=== PATIENT | female | born 1975 | race Caucasian/White ===

== ENCOUNTER 2017-05-14 22:08 | Inpatient (IN) | payer SELFPAY ==
[~2017-05-14] VITALS: Ht 152.4 cm; Wt 53.2 kg
--- NOTE | 2017-05-14 23:03 | NUR ---
PT PRESENTED TO THE ER WITH A C/O LEFT HIP WOUND/ABCESS. PT IS C/O PAIN, REDNESS, ABCESS DRAINED ON IT'S OWN, BUT HAS NOT HEALED. PT AMBULATED TO BED #3. PT HAD A HYSTERECTOMY IN 2007. NO URINE SAMPLE OBTAINED.
[2017-05-14] MEDS ORDERED: IV NS 0.9% 1,000 ML BAG IV STA (23:14)
[2017-05-14] MEDS ORDERED: VANCOMYCIN 1 GM VIAL ONE (23:21)
[2017-05-14] MEDS ORDERED: VANCOMYCIN 1 GM in IV D5W 250 ML IV ONE (23:30)
--- NOTE | 2017-05-14 23:34 | NUR ---
20G IV STARTED IN [facility]. BLOOD AND BLOOD CULTURES DRAWN. COLLECTION COORDINATOR/GRAIN GRADER IS AT THE BEDSIDE. PT C/O PAIN WHERE IV WAS INSERTED. IV REMOVED.
[2017-05-14 23:52] LABS: BASOPHILS % (AUTO) 0.1 % (0.0-2.0); CREATININE 0.6 mg/dL (0.6-1.3); EOSINOPHILS % (AUTO) 0.5 % (0.0-6.0); HEMATOCRIT 34 % (33-45); HEMOGLOBIN 11.1 g/dL (11.5-14.8); LYMPHOCYTES # (AUTO) 1.8 /CMM (0.8-4.8); LYMPHOCYTES % (AUTO) 25.9 % (20.0-44.0); MEAN CORPUSCULAR HEMOGLOBIN 26 PG (26.0-33.0); MEAN CORPUSCULAR HGB CONC 33 g/dl (31.0-36.0); MEAN CORPUSCULAR VOLUME 79 fL (82-100); MONOCYTES # (AUTO) 0.4 /CMM (0.1-1.30); MONOCYTES % (AUTO) 6.4 % (2.0-12.0); NEUTROPHILS # (AUTO) 4.6 /CMM (1.8-8.9); NEUTROPHILS % (AUTO) 67.1 % (43.0-81.0); PLATELET COUNT (AUTO) 385 /CMM (150-450); POTASSIUM 5.4 mmol/L (3.5-5.1); RDW COEFFICIENT OF VARIATION 15.8 (11.5-15.0); RED BLOOD CELL COUNT(AUTO) 4.26 MIL/uL (4.0-5.2); WHITE BLOOD COUNT (AUTO) 6.9 K/uL (4.3-11.0)
--- NOTE | 2017-05-14 23:52 | NUR ---
IV STARTED IN [facility] BY YARI FIGUEREDO.
[2017-05-15 00:15] VITALS: BP 114/55
--- NOTE | 2017-05-15 00:15 | NUR ---
MS WORK FORCE ADVISOR INITIAL NOTES ADMIT PT FROM ER VIA GURNEY ACCOMPANIED BY SUPERINTENDENT CONTAINER TERMINAL AND NURSE. DX OF CELLULITIS. PT IS ALERT ORIENTED AND ABLE TO AMBULATE. . WITH VANCOMYCIN IVP BAG INFUSING AT THIS TIME. NO SIGNS OF ANY ADVERSE REACTION NOTED. PT DENIES ANY PAIN AT THIS TIME. I ASK HER WHY SHE CHOOSE [facility] AND PT STATED SHE HEARD THAT [facility] ARE GOOD THAT'S WHY SHE DECIDED TO COME HERE. ORIENTED HER TO USE THE CALL LIGHT SYSTEM WELL USE IT IF SHE NEEDS SOME HELP OR ASSISTANCE. OFFERED SOME FOODS BUT ONLY REQUESTED TO HAVE CRACKERS AND JUICE. KEPT HER WARM AND COMFORTABLE AT ALL TIMES. WOUND CLEANED AND APPLIED DRESSINGS TOO. PLACE CALL LIGHT AT REACH. WILL CONTINUE MONITORING.
[2017-05-15] MEDS ORDERED: HYDROCODONE/APAP 5/325MG 1 EACH TABLET PO PRN (00:30)
[2017-05-15] MEDS ORDERED: ACETAMINOPHEN 325 MG TABLET PO PRN (00:30)
[2017-05-15] MEDS ORDERED: Z GUARD REMEDY 2 OZ OINT TP PRN (00:30)
[2017-05-15] MEDS ORDERED: MAG HYDROX/AL HYDROX/SIMETH 30 ML UDC PO PRN (00:30)
[2017-05-15] MEDS ORDERED: MAGNESIUM HYDROXIDE 30 ML UDC PO PRN (00:30)
[2017-05-15] MEDS ORDERED: ONDANSETRON HCL/PF 4 MG/2 ML VIAL IVP PRN (00:30)
[2017-05-15] MEDS ORDERED: PIPERACILLIN /TAZOBACTAM 3.375 G in IV D5W 50 ML IV SCH (00:30)
[2017-05-15] MEDS ORDERED: PIPERACILLIN /TAZOBACTAM 3.375 G VIAL IV ONE ×2 (01:18→01:41)
--- NOTE | 2017-05-15 02:30 | NUR ---
JANITOR/NOTES PT RESTING AT THIS TIME WITHOUT ANY DISCOMFORT NOTED. IVF NS AT 50ML/HR INFUSING AT THIS TIME. WILL CONTINUE MONITORING.
[2017-05-15] MEDS: IV NS 0.9% 1,000 ML IV PRN (05:51)
--- NOTE | 2017-05-15 07:11 | NUR ---
MS LOTUS NOTES ADMINISTRATOR CLOSING NOTES PT SLEEPING COMFORTABLY IN BED WITHOUT ANY DISCOMFORT NOTED. IVF NS AT 50ML/HR STILL INFUSING ON HER RIGHT FOREARM. STABLE SINCE ADMISSION. ALL DUE MEDS GIVEN AND ALL NEEDS MET. PLACE CALL LIGHT AT REACH. WILL ENDORSE TO AM NURSE FOR CONTINUITY OF CARE.
[2017-05-15 08:00] VITALS: BP_SYST 101; BP_SYST 123; BP_DIAS 51; BP_DIAS 69
--- NOTE | 2017-05-15 08:05 | NUR ---
MS RN OPENING NOTE RECEIVED BEDSIDE SBAR REPORT ON THE PATEIN. PATIENT IS A/O X4, COOPERATIVE. AWAKE AND RESPONSIVE IN BED. BED IS LOCKED IN LOWEST POSITION, SIDE RAILS UP X2. PATIENT IS AMBULATORY AND BRP. SPO2 97% ON RA. CHEST IS RISING EQUALLY BILATERALLY. DENIES PAIN AT THIS TIME. ALL BELONGINGS WITHIN REACH. ALL NEEDS ARE MET. CALL LIGHT WITHIN REACH. EDUCATED THE PATIENT TO CALL FOR ASSISTANCE USING THE CALL LIGHT. VERBALIZED UNDERSTANDING. WILL CONTINUE TO ASSESS, MONITOR THROUGHOUT THE SHIFT.
--- NOTE | 2017-05-15 08:16 | NUR ---
DOCUMENTED PREVIOUS SHIFT'S MEDICATIONS NON-ADMINISTERED TO RID OF THE RED PASSED DUE REMINDER
[2017-05-15] MEDS: HYDROCODONE/APAP 10/325MG 1 EA TABLET PO PRN ×2 (08:45→20:34)
--- NOTE | 2017-05-15 08:50 | NUR ---
PATIENT COMPLAINED OF PAIN IN L/HIP WOUND. PAIN MEDICATIONS ADMINISTERED ORDERED.
--- NOTE | 2017-05-15 11:33 | NUR ---
WOUND CARE CONSULT: PT PRESENTS WITH LEFT HIP WOUND WITH NECROTIC TISSUE AND RT HIP SCARRING WITH SMALL OPEN AREA. PT REPORTS THAT THERE IS PURULENT DRAINAGE FROM RT HIP WELL. RECOMMEND SURGICAL CONSULT. RECOMMENDATIONS MADE FOR WOUND CARE AND DISCUSSED WITH NURSING STAFF. WILL SEE PRN. PT IS AMBULATORY AND CONTINENT. MD IN AGREEMENT WITH PLAN OF CARE.
[2017-05-15] MEDS ORDERED: FEE PK DOSING 1 MIN EA MC ONE (12:13)
[2017-05-15] MEDS: PIPERACILLIN /TAZOBACTAM 3.375 G in IV D5W 50 ML IV SCH ×2 (14:06→18:50)
--- NOTE | 2017-05-15 14:25 | NUR ---
Social service consult requested by Dr. Platt for meth and heroin use. Pt. is a 42 year old female who was admitted to [facility] for wound complications. SW met with pt. bedside. Pt. is alert and oriented x 3. Pt. had a flat affect but was cooperative with SW during the assessment. Pt. resides with her Paulino Patel at [phone] [facility] in [facility].shimon Bob is her emergency contact and can be reached at . Pt. states she has [employer] insurance but is not sure if it's still active. Pt. is unemployed at this time. Pt. denies alcohol use. 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 Pt. was in a drug treatment program four months ago. SW encouraged pt. to go to a detox program and often referrals. Pt. declined referrals stating she knows all the programs that are available in the community. Pt. denies suicidal/homicidal ideations and visual/auditory hallucinations at this time. Pt. denies any psychiatric diagnosis or history. No other social service needs are required at this time. SW is available if needed.
[2017-05-15] MEDS: VANCOMYCIN 0.75 GM in IV NS 0.9% 250 ML IV SCH ×2 (15:31→20:34)
--- NOTE | 2017-05-15 15:32 | NUR ---
Patient wasnted to clean self and use the bathroom. Administering Vanco once patient is in bed to be connected to the IV.
[2017-05-15 16:00] VITALS: BP 113/81
--- NOTE | 2017-05-15 19:30 | NUR ---
MS RN NOTE PATIENT IS A/O X4, COOPERATIVE. AWAKE AND RESPONSIVE IN BED. BED IS LOCKED IN LOWEST POSITION, SIDE RAILS UP X2. PATIENT IS AMBULATORY AND BRP. SPO2 98% ON RA. CHEST IS RISING EQUALLY BILATERALLY. DENIES PAIN AT THIS TIME. ALL BELONGINGS WITHIN REACH. ALL NEEDS ARE MET. CALL LIGHT WITHIN REACH. EDUCATED THE PATIENT TO CALL FOR ASSISTANCE USING THE CALL LIGHT. VERBALIZED UNDERSTANDING. WILL CONTINUE TO ASSESS, MONITOR THROUGHOUT THE SHIFT.
--- NOTE | 2017-05-15 19:32 | NUR ---
MS RN CLOSING NOTE GAVE BEDSIDE SBAR REPORT ON THE PATEIN. PATIENT IS A/O X4, COOPERATIVE. AWAKE AND RESPONSIVE IN BED. BED IS LOCKED IN LOWEST POSITION, SIDE RAILS UP X2. PATIENT IS AMBULATORY AND BRP. SPO2 96% ON RA. CHEST IS RISING EQUALLY BILATERALLY. DENIES PAIN AT THIS TIME. ALL BELONGINGS WITHIN REACH. ALL NEEDS ARE MET. CALL LIGHT WITHIN REACH. EDUCATED THE PATIENT TO CALL FOR ASSISTANCE USING THE CALL LIGHT. VERBALIZED UNDERSTANDING. ENDORSED TRO THE L TACKER FOR CHRISTO.
[2017-05-15 20:00] VITALS: BP_SYST 113; BP_SYST 118; BP_DIAS 70; BP_DIAS 81
[2017-05-16] MEDS: PIPERACILLIN /TAZOBACTAM 3.375 G in IV D5W 50 ML IV SCH ×4 (00:19→18:07)
[2017-05-16] MEDS: HYDROCODONE/APAP 10/325MG 1 EA TABLET PO PRN ×3 (06:18→22:31)
--- NOTE | 2017-05-16 06:52 | NUR ---
MS RN NOTE PATIENT STABLE. ALL NEEDS MET AND ATTENDED TO. NPO SINCE MIDNIGHT FOR DEBRIDEMENT . CONSENT SIGNED AND PLACED IN CHART. WILL ENDORSE TO DAY SHIFT FOR CHRISTO.
[2017-05-16] MEDS: VANCOMYCIN 0.75 GM in IV NS 0.9% 250 ML IV SCH ×3 (06:55→21:35)
[2017-05-16 07:19] LABS: BASOPHILS % (AUTO) 0.4 % (0.0-2.0); EOSINOPHILS # (AUTO) 0.1 /CMM (0.0-0.7); EOSINOPHILS % (AUTO) 1.2 % (0.0-6.0); HEMATOCRIT 32 % (33-45); HEMOGLOBIN 10.7 g/dL (11.5-14.8); LYMPHOCYTES # (AUTO) 1.5 /CMM (0.8-4.8); LYMPHOCYTES % (AUTO) 32.4 % (20.0-44.0); MEAN CORPUSCULAR HEMOGLOBIN 26 PG (26.0-33.0); MEAN CORPUSCULAR HGB CONC 34 g/dl (31.0-36.0); MEAN CORPUSCULAR VOLUME 79 fL (82-100); MONOCYTES # (AUTO) 0.3 /CMM (0.1-1.30); MONOCYTES % (AUTO) 6.8 % (2.0-12.0); NEUTROPHILS # (AUTO) 2.8 /CMM (1.8-8.9); NEUTROPHILS % (AUTO) 59.2 % (43.0-81.0); PLATELET COUNT (AUTO) 343 /CMM (150-450); RDW COEFFICIENT OF VARIATION 16.9 (11.5-15.0); RED BLOOD CELL COUNT(AUTO) 4.05 MIL/uL (4.0-5.2); WHITE BLOOD COUNT (AUTO) 4.8 K/uL (4.3-11.0)
[2017-05-16 07:31] LABS: INR 1.07 (0.87-1.13)
[2017-05-16 07:41] LABS: THYROID STIMULATING HORMONE 1.496 uIU/mL (0.358-3.74)
[2017-05-16 07:42] LABS: ALBUMIN 2.5 g/dL (3.4-5.0); BILIRUBIN,TOTAL 0.2 mg/dL (0.2-1.0); CALCIUM, SERUM 8.4 mg/dL (8.5-10.1); CREATININE 0.6 mg/dL (0.6-1.3); MAGNESIUM 2.1 mg/dL (1.8-2.4); POTASSIUM 3.8 mmol/L (3.5-5.1)
[2017-05-16 08:00] VITALS: BP 94/41
--- NOTE | 2017-05-16 08:00 | NUR ---
MS RN OPENING NOTE RECEIVED BEDSIDE SBAR REPORT ON THE PATEIN. PATIENT IS A/O X4, COOPERATIVE. AWAKE AND RESPONSIVE IN BED. BED IS LOCKED IN LOWEST POSITION, SIDE RAILS UP X2. PATIENT IS AMBULATORY AND BRP. SPO2 97% ON RA. CHEST IS RISING EQUALLY BILATERALLY. DENIES PAIN AT THIS TIME. ALL BELONGINGS WITHIN REACH. ALL NEEDS ARE MET. CALL LIGHT WITHIN REACH. EDUCATED THE PATIENT TO CALL FOR ASSISTANCE USING THE CALL LIGHT. VERBALIZED UNDERSTANDING. PATIENT IS SCHEDULED FOR BILATERAL HIP WOUND DEBRIDEMENT TODAY. CONSENT SIGNED. PATIENT IS NPO POST MIDNIGHT. WILL CONTINUE TO ASSESS, MONITOR THROUGHOUT THE SHIFT.
[2017-05-16] MEDS ORDERED: BUPIVACAINE 0.5 % PF 150 MG/30 ML VIAL ONE (10:37)
[2017-05-16] MEDS ORDERED: LIDOCAINE 1%-EPI 1:100,000 20 ML VIAL ONE (10:37)
[2017-05-16] MEDS ORDERED: MIDAZOLAM HCL 2 MG/2ML VIAL ONE (11:49)
--- NOTE | 2017-05-16 11:54 | NUR ---
PATIENT LEFT THE UNIT VIA BED ACCOMPANIED BY THE PROFESSOR OF LANGUAGES AND OR TECH IN STABLE CONDITION. ALLERGIES VERIFIED. PATIENT NKA.
[2017-05-16] MEDS ORDERED: HYDROMORPHONE INJ 0.5 MG/0.5 ML SYRINGE IV PRN ×3 (13:30)
--- NOTE | 2017-05-16 13:48 | NUR ---
PATIENT RETURNED TO THE UNIT IN STABLE CONDITION. RESUME DIET TO REGULAR. VANCO ADMINISTERED ORDERED. VERIFIED WITH THE PHARMACY. PER [facility] PHARMACIST THROUGH TO BE CHECKED JOSE ALFREDO
[2017-05-16 16:00] VITALS: BP 98/56
--- NOTE | 2017-05-16 19:22 | NUR ---
MS RN CLOSING NOTE PATIENT IS A/O X4, COOPERATIVE. AWAKE AND RESPONSIVE IN BED. BED IS LOCKED IN LOWEST POSITION, SIDE RAILS UP X2. PATIENT IS AMBULATORY AND BRP. SPO2 97% ON RA. CHEST IS RISING EQUALLY BILATERALLY. DENIES PAIN AT THIS TIME. ALL BELONGINGS WITHIN REACH. ALL NEEDS ARE MET. CALL LIGHT WITHIN REACH. EDUCATED THE PATIENT TO CALL FOR ASSISTANCE USING THE CALL LIGHT. WILL ENDORSE TO THE MATERIAL HANDLING SUPERVISOR NURSE FOR CHRISTO.
--- NOTE | 2017-05-16 19:30 | NUR ---
MS RN NOTE RECEIVED PATIENT AWAKE, ALERT AND ORIENTED IN BED. IV SITE INTACT, WITH FLUIDS RUNNING ORDERED. BED LCOEKD AND IN LOWEST POSITION. WILL CONTINUE TO MONITOR.
[2017-05-16 20:00] VITALS: BP 97/58
[2017-05-16 22:00] VITALS: BP 97/58
--- NOTE | 2017-05-16 22:35 | NUR ---
MS GREENBERG NOTE ENDORSED TO YARI ROBBINS FOR CHRISTO.
[2017-05-17] MEDS: PIPERACILLIN /TAZOBACTAM 3.375 G in IV D5W 50 ML IV SCH ×5 (00:23→23:02)
[2017-05-17] MEDS: IV NS 0.9% 1,000 ML IV PRN ×2 (01:36→23:02)
[2017-05-17] MEDS: VANCOMYCIN 0.75 GM in IV NS 0.9% 250 ML IV SCH ×3 (05:20→20:31)
--- NOTE | 2017-05-17 06:14 | NUR ---
MS RN CLOSING NOTE PATIENT IS A/O X4, COOPERATIVE. DENIES PAIN AT THIS TIME. NO ACUTE DISTRESS NOTED. ALL NEEDS ATTENDED AND ANTICIPATED. CALL LIGHT WITHIN REACH. BED IN LOW AND LOCKED POSITION SIDERAILS UPX2. CALL LIGHT WITHIN REACH. WILL ENDORSE TO THE NEXT SHIFT NURSE FOR CHRISTO.
[2017-05-17] MEDS: HYDROCODONE/APAP 10/325MG 1 EA TABLET PO PRN (06:40)
[2017-05-17 08:00] VITALS: BP 92/53
--- NOTE | 2017-05-17 08:00 | NUR ---
MS YARI AM NOTES RECEIVED PATIENT IS A/O X4, COOPERATIVE. AWAKE AND RESPONSIVE IN BED. BED IS LOCKED IN LOWEST POSITION, SIDE RAILS UP X2. PATIENT IS AMBULATORY AND BRP. SPO2 97% ON RA.DENIES PAIN AT THIS TIME.CALL LIGHT WITHIN REACH.VERBALIZED UNDERSTANDING. S/P BILATERAL HIP WOUND DEBRIDEMENT WITH DAVID DRESSINGS INTACT WITH MODERATE SEROSANGUINOUS DRAINAGE.WILL DO WOUND TX ORDERED.WILL ASSESS AND MONITOR.
[2017-05-17 13:10] LABS: BASOPHILS % (AUTO) 0.3 % (0.0-2.0); EOSINOPHILS % (AUTO) 0.3 % (0.0-6.0); HEMATOCRIT 31 % (33-45); HEMOGLOBIN 10.1 g/dL (11.5-14.8); LYMPHOCYTES # (AUTO) 1.6 /CMM (0.8-4.8); MEAN CORPUSCULAR HEMOGLOBIN 26 PG (26.0-33.0); MEAN CORPUSCULAR HGB CONC 33 g/dl (31.0-36.0); MEAN CORPUSCULAR VOLUME 80 fL (82-100); MONOCYTES # (AUTO) 0.2 /CMM (0.1-1.30); MONOCYTES % (AUTO) 3.1 % (2.0-12.0); NEUTROPHILS # (AUTO) 4.2 /CMM (1.8-8.9); NEUTROPHILS % (AUTO) 70.3 % (43.0-81.0); PLATELET COUNT (AUTO) 303 /CMM (150-450); RDW COEFFICIENT OF VARIATION 16.7 (11.5-15.0); RED BLOOD CELL COUNT(AUTO) 3.86 MIL/uL (4.0-5.2)
[2017-05-17 14:13] LABS: CALCIUM, SERUM 8.4 mg/dL (8.5-10.1); CREATININE 0.7 mg/dL (0.6-1.3); POTASSIUM 3.6 mmol/L (3.5-5.1)
[2017-05-17 14:18] LABS: IRON, SERUM 45 ug/dl (50-175); TOTAL IRON BINDING CAPACITY 254 ug/dl (250-450)
[2017-05-17 16:00] VITALS: BP 84/44
[2017-05-17] MEDS: LACTOBACILLUS RHAMNOSUS GG 1 EACH CAP.SPRINK PO SCH (17:06)
--- NOTE | 2017-05-17 18:58 | NUR ---
WOUND TX DONE TO DAVID HIP WOUNDS.PT TOLERATED WELL.DENIES DISTRESS OF DISCOMFORT.PT EATING DINNER.CALL LIGHT PLACED WITHIN REACH.
--- NOTE | 2017-05-17 19:30 | NUR ---
RN INITIAL NOTES: RECEIVED REPORT FROM SHAHLA Hatfield PT IN BED, AWAKE, A/O X4, ON ROOM AIR, DENIES ANY SOB, PT DENIES ANY PAIN OR DISCOMFORT AT THIS TIME, IV ACCESS PATENT AND FLUSHING WELL, INFUSING WITH NS AT 50ML/HR. S/P DEBRIDEMENT, BILATERAL HIP WITH DR JURADO 05/16/17. DRESSING CHANGED BY DAY RN, DRESSING C/D/I, NO ACTIVE BLEEDING NOTED. SAFETY PRECAUTIONS FOR FALL INITIATED CALL LIGHT IN REACH WILL CONTINUE TO MONITOR
[2017-05-17 20:00] VITALS: BP 94/55
--- NOTE | 2017-05-17 21:00 | NUR ---
RN NOTES: ASKED PT IF SHE HAS ANY PAIN, PT DENIES ANY PAIN OR DISCOMFORT AT THIS TIME, PT MADE AWARE THAT IN CASE SHE HAS PAIN, THERE IS AVAILABLE PAIN MEDICATION FOR HER, NORCO THAT CAN BE GIVEN Q4HRS NEEDED FOR PAIN
[2017-05-18] MEDS: VANCOMYCIN 0.75 GM in IV NS 0.9% 250 ML IV SCH ×3 (04:20→21:52)
[2017-05-18] MEDS: PIPERACILLIN /TAZOBACTAM 3.375 G in IV D5W 50 ML IV SCH ×3 (06:20→17:13)
--- NOTE | 2017-05-18 06:44 | NUR ---
MS RN NOTES: PT IN BED, AWAKE, DENIES ANY PAIN OR DISCOMFORT AT THIS TIME, IV ACCESS REMAINS PATENT AND FLUSHING WELL, INFUSING WITH NS AT 50ML/HR. BILATERAL HIP DRESSING REMAINS C/D/I. VS REMAINS STABLE, NEEDS ATTENDED. SAFETY PRECAUTIONS FOR FALL REMAIN ENGAGED, CALL LIGHT IN REACH, WILL ENDORSE TO DAY RN FOR CHRISTO.
--- NOTE | 2017-05-18 07:20 | NUR ---
RN NOTES PT IS RESTING IN BED, ALERT AND ORIENTED. PT ON RA, RESPIRATIONS ARE EVEN AND UNLABORED. IV ON RFA INTACT AND PATENT, RUNNING NS @ 50ML/HR. SAFETY MEASURES ARE IN PLACE, CALL LIGHT IS IN REACH. WILL CONTINUE TO MONITOR.
[2017-05-18 07:36] LABS: CALCIUM, SERUM 7.7 mg/dL (8.5-10.1); CREATININE 0.6 mg/dL (0.6-1.3); POTASSIUM 3.3 mmol/L (3.5-5.1)
[2017-05-18 08:00] VITALS: BP 83/57
[2017-05-18] MEDS: HYDROCODONE/APAP 10/325MG 1 EA TABLET PO PRN (08:02)
[2017-05-18] MEDS: LACTOBACILLUS RHAMNOSUS GG 1 EACH CAP.SPRINK PO SCH ×2 (08:02→17:13)
--- NOTE | 2017-05-18 12:00 | NUR ---
RN NOTES NO IV ACCESS AT THIS TIME, CALLED FOR MIDLINE INSERTION. WILL HANG ANTIBIOTICS ONCE MIDLINE IS INSERTED.
[2017-05-18] MEDS ORDERED: POTASSIUM CHLORIDE 20 MEQ TAB.PRT.SR PO SCH (12:30)
[2017-05-18 16:00] VITALS: BP 87/48
--- NOTE | 2017-05-18 18:40 | NUR ---
RN NOTES PT IS RESTING IN BED, NO SIGNS OF DISTRESS NOTED. PT IS ALERT AND ORIENTED X4. PT ON RA, RESPIRATIONS ARE EVEN AND UNLABORED. HARISH MIDLINE INTACT AND RUNNING NS @ 50ML/HR. ALL MEDS WERE GIVEN ORDERED AND PT NEEDS MET. SAFETY MEASURES ARE IN PLACE, CALL LIGHT IS IN REACH. WILL ENDORSE TO DERRICK CAR OPERATOR RN FOR CONTINUITY OF CARE.
--- NOTE | 2017-05-18 19:35 | NUR ---
MS RN OPENING NOTES RECEIVED PT ALERT, AWAKE, VERBALLY RESPONSIVE. ON ROOM AIR, RESPIRATIONS EVEN, UNLABORED. DENIES ANY PAIN OR DISCOMFORT AT THIS TIME. HARISH MIDLINE INTACT, PATENT. CALL LIGHT WITHIN REACH. BED LOCKED IN LOWEST POSITION. ATTENDED ALL NEEDS. WILL CONTINUE TO MONITOR ACCORDINGLY.
[2017-05-18 20:00] VITALS: BP 120/80
[2017-05-18 22:00] VITALS: BP 120/80
[2017-05-19] MEDS: PIPERACILLIN /TAZOBACTAM 3.375 G in IV D5W 50 ML IV SCH ×2 (00:06→05:31)
[2017-05-19] MEDS: HYDROCODONE/APAP 10/325MG 1 EA TABLET PO PRN ×2 (00:12→04:41)
[2017-05-19] MEDS: VANCOMYCIN 0.75 GM in IV NS 0.9% 250 ML IV SCH (04:33)
--- NOTE | 2017-05-19 06:49 | NUR ---
MS RN CLOSING NOTES PT IN BED AWAKE, ALERT, VERBALLY RESPONSIVE., DENIES ANY PAIN OR DISCOMFORT AT THIS TIME. HARISH MIDLINE INTACT, PATENT. CALL LIGHT WITHIN REACH. ATTENDED ALL NEEDS. WILL CONTINUE TO MONITOR ACCORDINGLY.
--- NOTE | 2017-05-19 06:54 | NUR ---
BLOOD BANK CUSTODIAN CLOSING NOTES PT IN BED, RESTING COMFORTABLY , RESPIRATIONS EVEN, UNLABORED, NO APPARENT DISTRESS NOTED, DENIES ANY CHEST PAIN AT THIS TIME. IV SITE RT AC INTACT, PATENT. CALL LIGHT WITHIN REACH. KEPT CLEAN AND COMFORTABLE, ATTENDED ALL NEEDS. WILL CONTINUE TO MONITOR. Addendum: 05/19/17 at 0658 by LINA ORTIZ RN ERROR
--- NOTE | 2017-05-19 07:15 | NUR ---
RN NOTES PT IS SITTING UP IN BED, AWAKE AND ALERT. PT ON RA, RESPIRATIONS ARE EVEN AND UNLABORED. HARISH MIDLINE INTACT AND SL. SAFETY MEASURES ARE IN PLACE, CALL LIGHT IS IN REACH. WILL CONTINUE TO MONITOR.
[2017-05-19 07:57] LABS: CALCIUM, SERUM 8.3 mg/dL (8.5-10.1); CREATININE 0.6 mg/dL (0.6-1.3); POTASSIUM 3.4 mmol/L (3.5-5.1)
[2017-05-19 08:00] VITALS: BP_SYST 117; BP_SYST 130; BP_DIAS 61; BP_DIAS 87
[2017-05-19] MEDS: LACTOBACILLUS RHAMNOSUS GG 1 EACH CAP.SPRINK PO SCH (08:48)
[2017-05-19] MEDS ORDERED: POTASSIUM CHLORIDE 20 MEQ TAB.PRT.SR PO SCH (09:30)
[2017-05-19] MEDS ORDERED: SULFAMETH/TRIMETH 800/160 MG 1 UDTAB TABLET PO SCH (11:04)
[2017-05-19] MEDS ORDERED: CEPHALEXIN MONOHYDRATE 500 MG CAPSULE PO SCH (13:00)
[2017-05-19] MEDS ORDERED: HYDROCODONE/APAP 10/325MG 1 EA TABLET PO STA (14:28)
[2017-05-19] MEDS ORDERED: BUPR1FIL3 SL (14:30)
[2017-05-19] MEDS ORDERED: SULF1TAB3 PO (14:30)
[2017-05-19] MEDS ORDERED: CEPH500C2 PO (14:30)
--- NOTE | 2017-05-19 15:10 | NUR ---
RN NOTES PT WAS DISCHARGED IN STABLE CONDITION TO HOME, ACCOMPANIED BY HER . PTS BELONGINGS WERE RETURNED AND DISCHARGE PAPERS WERE SIGNED. PT WAS INFORMED TO FOLLOW UP WITH DR. JURADO AT WOUND CLINIC WITHIN A WEEK AND TO FILL PRESCRIPTIONS SENT TO PHARMACY. PT VERBALIZED UNDERSTANDING AND WILL MAKE APPOINTMENT ON HER OWN. PICTURE WAS TAKEN OF WOUND ON LEFT HIP, BUT PT REFUSED TO TAKE PICTURE OF WOUND ON RIGHT HIP DUE TO THE PAIN SHE WAS IN. IV AND ID BAND WERE REMOVED AND PT WAS GIVEN WOUND CARE SUPPLIED IN ORDER TO DO DRESSING CHANGES AT HOME.
== END 2017-05-19 15:10 | disposition home or self-care (01) | DRG 580 ==
LOC: ER 22:08 → MED 23:52 → ICU 05-16 12:55 → MED 05-16 14:12
PROVIDERS: ADMIT Nurse Practitioner Acute Care; ATTEND Nurse Practitioner Acute Care
DX: L03.116 Cellulitis of left lower limb (principal); F11.23 Opioid dependence with withdrawal; E87.5 Hyperkalemia; S71.002A Unspecified open wound, left hip, initial encounter; S71.001A Unspecified open wound, right hip, initial encounter; D50.9 Iron deficiency anemia, unspecified; F15.10 Other stimulant abuse, uncomplicated; L02.416 Cutaneous abscess of left lower limb; L02.415 Cutaneous abscess of right lower limb; L03.115 Cellulitis of right lower limb; Z90.710 Acquired absence of both cervix and uterus; X58.XXXA Exposure to other specified factors, initial encounter; Y93.89 Activity, other specified; Y92.009 Unspecified place in unspecified non-institutional (private) residence as the place of occurrence of the external cause; K27.9 Peptic ulcer, site unspecified, unspecified as acute or chronic, without hemorrhage or perforation
CPT/HCPCS: 36415; 73502; 73552; 80048-TC; 80053-TC; 80061-TC; 80202-TC; 83540-TC; 83735-TC; 84100-TC; 84443-TC; 85025-TC; 85610-TC; 85730-TC; 87040-TC; 87070-TC; 87081-TC; 87186-TC; A4606; A6253; A6402; A6403; J1100; J2250; J2405; J2543; J2704; J3370; J3490; J7030; J7050; J7060; Z7610